=== PATIENT | female | born 1955 | race Caucasian/White ===

== ENCOUNTER 2016-03-09 08:44 | Outpatient (CLI) ==
[2015-01-01 10:37] VITALS: BMI 29.7
--- NOTE | 2016-03-10 07:35 | MAMMO ---
EXAM: Digital screening mammogram HISTORY: Screening mammogram COMPARISON: Mammogram 08/26/2014 and 05/15/2012 FINDINGS: Bilateral CC and MLO views of the breasts were performed digitally and demonstrate scatte red fibroglandular densities breast density (25 - 50%). Bilateral unchanged calcifications are prese nt with a biopsy clip noted in the right breast unchanged from prior exam. The right axillary lymph nodes are less prominent than on prior exam. There is no significant interval change. IMPRESSION: No new or suspicious nodule or calcification with no significant interval change RECOMMENDATION: Annual screening mammogram BIRADS category II: Benign findings
== END 2016-03-09 08:45 | disposition home or self-care (01) ==
LOC: RAD 08:44
PROVIDERS: ATTEND Internal Medicine
DX: Z12.31 Encounter for screening mammogram for malignant neoplasm of breast (principal)

== ENCOUNTER 2017-03-29 08:08 | Outpatient (CLI) ==
[2015-01-01 10:37] VITALS: BMI 29.7
--- NOTE | 2017-03-30 09:56 | MAMMO ---
EXAM: Bilateral digital screening mammogram (2-D and 3-D) History: Screening Comparison: Bilateral mammogram 03/09/2016 Findings: MLO and CC views of bilateral breasts demonstrate scattered fibroglandular breast parenchy ma. CAD was reviewed by the radiologist. Tomosynthesis was normal. Stable benign bilateral breast calcifications. There are no dominant masses, no suspicious microcalcifications and no architectural distortions. Biopsy clip again seen within the right breast Impression: Benign stable mammogram. Recommend followup routine screening mammography in 1 year. BIRADS 2
== END 2017-03-29 08:09 | disposition home or self-care (01) ==
LOC: RAD 08:08
PROVIDERS: ATTEND Internal Medicine
DX: Z12.31 Encounter for screening mammogram for malignant neoplasm of breast (principal)
CPT/HCPCS: 77067

== ENCOUNTER 2017-07-04 20:29 | Emergency (ER) ==
[2017-07-04 20:31] VITALS: BP 163/83; TEMP 98.1; BMI 30.5
--- NOTE | 2017-07-04 20:38 | ED.PDOC ---
General ED Provider: Dr. FELIX CADENA-ER Chief Complaint: Bite Stated Complaint: i was bit by a surinder mayes Time Seen by Physician: 20:36 Mode of Arrival: Walk-In Information Source: Patient Exam Limitations: No limitations Primary Care Provider: ZANDRA DUONG Nursing and Triage Documentation Reviewed and Agree: Yes Reviewed sepsis parameters & appropriate labs ordered?: Yes System Inflammatory Response Syndrome: Not Applicable Sepsis Protocol: For patient's 13 years and over: Temp is 96.8 and below OR 101 and greater Pulse >90 BPM Resp >20/minute Acutely Altered Mental Status Are patient's symptoms suggestive of a new infection, such as: -Pneumonia -Skin, Soft Tissue -Endocarditis -UTI -Bone, Joint Infection -Implantable Device -Acute Abdominal Infection -Wound Infection -Meningitis -Blood Stream Catheter Infection -Unknown Musculoskeletal Complaint Exam - Elbow Pain Complaint/Exam Mechanism of Injury: Reports: Trauma Onset/Duration: 45 min Symptoms Are: Still present Onset of Pain: Reports: Immediate Initial Severity: Mild Current Severity: Mild Location: Reports: Discrete (left elbow) Character: Reports: Dull, Aching, Throbbing, Stiffness Aggravating: Reports: Movement, Twisting, Pulling Associated Signs and Symptoms: Denies: Swelling, Redness, Bruising, Fever, Weakness, Numbness, Tingling Related Surgical History: Reports: None Elbow Findings: Present: Swelling, Ecchymosis Tenderness: Present: Lateral Condyle Limited Range of Motion: Present: Flexion, Extension Differential Diagnoses: Contusion, Abrasion, Closed Fracture Review of Systems - Review Of Systems Constitutional: Reports: No symptoms Eyes: Reports: No symptoms Ears, Nose, Mouth, Throat: Reports: No symptoms Respiratory: Reports: No symptoms Cardiac: Reports: No symptoms GI: Reports: No symptoms : Reports: No symptoms Musculoskeletal: Reports: Joint pain Skin: Reports: No symptoms Neurological: Reports: No symptoms Endocrine: Reports: No symptoms Hematologic/Lymphatic: Reports: No symptoms All Other Systems: Reviewed and Negative Past Medical History - Past Medical History Previously Healthy: No Endocrine: Reports: DM 2 Cardiovascular: Reports: Hypertension Respiratory: Reports: None Hematological: Reports: None Gastrointestinal: Reports: None Genitourinary: Reports: None Neuro/Psych: Reports: None Musculoskeletal: Reports: Unknown Cancer: Reports: None Last Menstrual Period: HYSTERECTOMY - Surgical History General Surgical History: Reports: Hysterectomy, Cholecystectomy, Orthopedic ( CYST REMOVAL, CARPAL TUNNEL), Back Surgery - Family History Family History: Reports: Unknown - Social History Smoking Status: Never smoker Hx Substance Use: No Alcohol Screening: None - Immunizations Tetanus Shot up to Date: No Physical Exam - Physical Exam Appearance: Well-appearing Pain Distress: Mild Eyes: LAILA, EOMI, Conjunctiva clear ENT: Ears normal, Nose normal, Oropharynx normal Neck: Supple Respiratory: Airway patent, Breath sounds clear, Breath sounds equal, Respirations nonlabored Cardiovascular: RRR, Pulses normal, No rub, No murmur GI/: Tender Musculoskeletal: Limited ROM Skin: Warm Neurological: Sensation intact, Motor intact, Reflexes intact, Cranial nerves intact, Alert, Oriented Psychiatric: Affect appropriate, Mood appropriate Interpretation - Radiology Interpretation Radiology Interpretation By: Radiologist Radiology Results: Negative Critical Care Note - Critical Care Note Total Time (mins): 0 Course - Course Orders, Labs, Meds: Orders Category Date Time Status Wound care [ED WOUND CARE] .ONCE EMERGENCY 07/04/17 20:52 Active Acetaminophen [Tylenol] MEDS 07/04/17 20:52 Discontinued 650 mg PO ONCE STA Doxycycline Hyclate MEDS 07/04/17 20:52 Discontinued 100 mg PO ONCE STA ELBOW, LEFT MIN 3 VIEWS Stat RADS 07/04/17 20:35 Taken Medications Discontinued Medications Generic Name Dose Route Start Last Admin Trade Name Freq PRN Reason Stop Dose Admin Acetaminophen 650 mg 07/04/17 20:52 Tylenol PO 07/04/17 20:53 ONCE STA Doxycycline Hyclate 100 mg 07/04/17 20:52 Doxycycline Hyclate PO 07/04/17 20:53 ONCE STA Vital Signs: Temp Pulse Resp BP Pulse Ox 07/04/17 20:29 98.1 F 84 16 163/83 H 93 L Departure - Departure Time of Disposition: 20:54 Disposition: HOME SELF-CARE Discharge Problem: Dog bite Qualifiers: Encounter type: initial encounter Qualified Code(s): W54.0XXA - Bitten by dog, initial encounter Instructions: Animal Bite (ED) Condition: Good Pt referred to PMD for follow-up: Yes IPMP verified?: No Additional Instructions: doxycycline 100mg q 12hrs #10--keep clean and dry--f/u with dr duong Allergies/Adverse Reactions: Allergies codeine phosphate [From Tylenol-Codeine #3] Adverse Reaction (Verified 07/04/17 20:31) hydrocodone bitartrate [From Lortab] Adverse Reaction (Verified 07/04/17 20:31) Penicillins Adverse Reaction (Verified 07/04/17 20:31) Sulfa (Sulfonamide Antibiotics) Adverse Reaction (Verified 07/04/17 20:31) Home Medications: Ambulatory Orders Bisoprolol Fumarate/Hctz [Ziac] 1 tab PO DAILY 02/18/14 Citalopram Hydrobromide [Celexa] 30 mg PO BEDTIME 02/18/14 Dapagliflozin Propanediol [Farxiga] 10 mg PO DAILY 02/18/14 Losartan Potassium [Cozaar] 50 mg PO DAILY 02/18/14 Metformin HCl [Metformin HCl ER] 500 mg PO BID 02/18/14 Montelukast Sodium [Singulair] 10 mg PO BEDTIME 02/18/14 Disposition Discussed With: Patient, Family
[2017-07-04] MEDS ORDERED: TYLENOL PO STA (20:52)
[2017-07-04] MEDS ORDERED: DOXYCYCLINE HYCLATE PO STA (20:52)
--- NOTE | 2017-07-04 21:03 | DI ---
EXAM: Left elbow; AP, lateral, and oblique views HISTORY: Left elbow pain post dog bite FINDINGS: The joint spaces are normal. No fracture or subluxation are detected. Minimal soft tissue g as is noted at the lateral aspect of the distal humerus. No elbow joint effusion or radiopaque forei gn bodies are detected. OPINION: No fracture or subluxation. Minimal soft tissue gas near the lateral distal humerus. No radiopaque foreign bodies.
== END 2017-07-04 21:21 | disposition home or self-care (01) ==
LOC: ED 20:29
DX: S51.052A Open bite, left elbow, initial encounter (principal); W54.0XXA Bitten by dog, initial encounter
CPT/HCPCS: 99283

== ENCOUNTER 2017-09-30 06:29 | Outpatient (CLI) | END 2017-09-30 06:30 | disposition home or self-care (01) | LOC: CAR 06:29 | PROVIDERS: ATTEND Internal Medicine | DX: R06.02 Shortness of breath (principal); R01.1 Cardiac murmur, unspecified ==

== ENCOUNTER 2018-04-04 07:53 | Outpatient (CLI) ==
--- NOTE | 2018-04-05 10:40 | MAMMO ---
EXAM: Bilateral digital screening mammogram (2-D and 3-D) History: Screening Comparison: Bilateral mammogram 03/29/2017 Findings: MLO and CC views of bilateral breasts demonstrate scattered fibroglandular breast parenchy ma. CAD was reviewed by the radiologist. Tomosynthesis was performed. Stable benign bilateral georget[address] calcifications. Biopsy clips seen within the right breast. There are no dominant masses and no s uspicious microcalcifications. Impression: Benign stable mammogram. Recommend followup routine screening mammography in 1 year. BIRADS 2, benign
== END 2018-04-04 07:54 | disposition home or self-care (01) ==
LOC: RAD 07:53
PROVIDERS: ATTEND Internal Medicine
DX: Z12.31 Encounter for screening mammogram for malignant neoplasm of breast (principal)